=== PATIENT | male | born 1980 | race Caucasian/White ===

== ENCOUNTER 2016-11-20 13:27 | Emergency (ER) | payer MEDICAID ==
[~2016-11-20] VITALS: Ht 185.4 cm; Wt 81.6 kg
--- NOTE | 2016-11-20 13:52 | Emergency Room Report ---
History of Present Illness General Chief Complaint: Pain Source: EMS Present Illness HPI 36 YO Male presents to the ED C/O 12/02 in severity left knee pain s/p mechanical fall. pt. states pain is exacerbated with weight bearing and walking. pt. denies hitting his head, denies loss of consciousness. pt denies erythema, fevers, chills, or recent open lesions. Denies numbness tingling or loss of sensation or gross motor movements of the extremities, incontinence of bowel or bladder. Denies CP, Palpitations, LOC, AMS, dizziness, Changes in Vision, Sensation, paresthesias, or a sudden severe headache. Allergies: Coded Allergies: No Known Allergies (Unverified , 11/20/16) Patient History Past Medical History: see triage record Past Surgical History: none Pertinent Family History: none Immunizations: UTD Reviewed Nursing Documentation: PMH: Agreed, PSxH: Agreed Nursing Documentation-PMH Past Medical History: No Stated History Review of Systems All Other Systems: negative except mentioned in HPI Physical Exam Vital Signs Date Time Temp Pulse Resp B/P Pulse Ox O2 Delivery O2 Flow Rate FiO2 11/20/16 13:22 84 20 100/68 Room Air Sp02 EP Interpretation: reviewed, normal General Appearance: no apparent distress, alert, GCS 15, non-toxic Head: normocephalic, atraumatic Eyes: bilateral eye PERRL, bilateral eye normal inspection ENT: hearing grossly normal, normal pharynx, no angioedema, normal voice Neck: full range of motion, supple/symm/no masses Respiratory: lungs clear, normal breath sounds, speaking full sentences Cardiovascular #1: regular rate, rhythm, no edema Rectal: deferred Genitourinary: normal inspection, no CVA tenderness Musculoskeletal: back normal, gait/station normal, normal range of motion, tender - anterior left knee, with mild swelling noted, no obvious erythema, or increased temperature to palpation. Neurologic: alert, oriented x3, responsive, motor strength/tone normal, sensory intact, speech normal Psychiatric: judgement/insight normal, memory normal, mood/affect normal Skin: normal color, warm/dry, well hydrated, rash - skin is dry multiple areas of excoriation noted, and dry plaques. Medical Decision Making PA Attestation Dr. corona is my supervising Physician whom patient management has been discussed with. Diagnostic Impression: Primary Impression: Left knee sprain Qualified Codes: S83.92XA - Sprain of unspecified site of left knee, initial encounter ER Course 36 YO Male presents to the ED C/O 12/02 in severity left knee pain s/p mechanical fall. pt. states pain is exacerbated with weight bearing and walking. pt. denies hitting his head, denies loss of consciousness. pt denies erythema, fevers, chills, or recent open lesions. Denies numbness tingling or loss of sensation or gross motor movements of the extremities, incontinence of bowel or bladder. Denies CP, Palpitations, LOC, AMS, dizziness, Changes in Vision, Sensation, paresthesias, or a sudden severe headache. Ddx considered but are not limited to Fracture, dislocation, contusion, Sprain/ Strain/Spasm, Epidural abscess, Neoplastic mets. Vital signs: are WNL, pt. is afebrile H&PE are most consistent with musculoskeletal injury will perform imaging to r/ o fractures/dislocations. ORDERS: - X-ray Left knee 3 views - negative for fx, Dislocation, or significant soft tissue injury, per preliminary read in ED by Dr. Rao - interpretation is scribed by PA. ED INTERVENTIONS: - IBU 600mg PO - Laci wrap applied to the left knee by information technology coordinator. Pt. remains neurovascularly intact. -Pt. is provided with a pair of crutches. DISCHARGE: At this time pt. is stable for d/c to home. Will provide printed patient care instructions, and any necessary prescriptions. Care plan and follow up instructions have been discussed with the patient prior to discharge. Last Vital Signs Date Time Temp Pulse Resp B/P Pulse Ox O2 Delivery O2 Flow Rate FiO2 11/20/16 13:22 84 20 100/68 Room Air Disposition: HOME, SELF-CARE Condition: Stable Scripts Ibuprofen* (MOTRIN*) 600 Mg Tablet 600 MG ORAL THREE TIMES A DAY, #30 TAB 0 Refills Prov: Vanesa Thomas 11/20/16 Patient Instructions: Knee Pain, [id number] Additional Instructions: Take medications as directed. Follow up with a Primary Care Provider in 3-5 days, even if your symptoms have resolved. --Please review list of primary care clinics, if you do not already have a primary care provider Return sooner to ED if new symptoms occur, or current symptoms become worse. - Please note that this Emergency Department Report was dictated using [email or web address] technology software, occasionally this can lead to erroneous entry secondary to interpretation by the dictation equipment. Vanesa Thomas Nov 20, 2016 13:52
[2016-11-20 14:18] VITALS: BP 100/68
[2016-11-20] MEDS ORDERED: IBUPROFEN600 MG ORAL (14:51)
[2016-11-20 14:59] VITALS: BP 100/68
--- NOTE | 2016-11-21 08:52 | Diagnostic Imaging Report ---
History: Pain. Technique: Frontal, lateral, and oblique views of the left knee are provided. Comparison: No prior study is available for comparison. Findings: Overall bony mineralization is within normal limits. There is no evidence of acute fracture or dislocation. No significant erosive or arthritic change is noted. The soft tissues appear grossly normal. No significant joint effusion is noted. Impression: No evidence of acute fracture or dislocation.
== END 2016-11-20 14:59 | disposition home or self-care (01) ==
LOC: EDBD 13:27 → EMR 13:50
DX: S83.92XA Sprain of unspecified site of left knee, initial encounter (principal); W01.0XXA Fall on same level from slipping, tripping and stumbling without subsequent striking against object, initial encounter; Y92.9 Unspecified place or not applicable
CPT/HCPCS: 29530; 99283